=== PATIENT | female | born 1970 ===

== ENCOUNTER 2018-08-11 03:39 | Emergency (ER) | payer SELFPAY ==
[2018-08-11 04:01] VITALS: BP 167/92
== END 2018-08-11 06:15 | disposition left against medical advice (07) ==
LOC: ED 03:39
DX: R07.9 Chest pain, unspecified (principal); Z53.21 Procedure and treatment not carried out due to patient leaving prior to being seen by health care provider
CPT/HCPCS: 93005; 93010